=== PATIENT | female | born 1935 | race Caucasian/White ===

== ENCOUNTER → 2016-10-06 | Day surgery (SDC) | payer MEDICARE, OTHER ==
[~2016-10-06] MED LIST: AMIT25TA PO; ASPI325T4 PO; CARV12.52 PO; CARV25TA2 PO; CYCL5TAB PO; FENTANYL PF 100 MCG/2 ML VIAL. IV PRN; GABA-585 PO; GUAN2TAB11 PO; HYDR-2869 PO; HYDR50TA6 PO; HYDROMORPHONE 2 MG/ML VIAL. IV PRN; INSU100I13 SQ; IV RINGERS,LACTATED 1000ML 1,000 ML IV SCH; LIDOCAINE 1% 1 ML SYRINGE. ID PRN; LIDOCAINE 2% PF Vial for OR 5 ML VIAL. ONE; LIPA1CAP12 PO; MECL12.52 PO; METO10TA81 PO; MORPHINE SULFATE 2 MG/ML DISP.SYRIN. IV PRN; NALO25TA2 PO; NIFE60TA16 PO; OMEP40CA5 PO; ONDANSETRON PF 4 MG/2 ML VIAL. IV PRN; OXYC-244 PO; PHEN100C PO; PROCHLORPERAZINE 10 MG/2 ML VIAL. IV PRN; PROPOFOL 0 ML IV ONE; PROPOFOL 20 ML IV ONE; SCOP1PAT TP; SERT100T PO; SPIR50TA2 PO; SUCR1TAB29 PO
[2016-10-06 09:54] VITALS: BP 181/78
== END | disposition home or self-care (01) ==
LOC: ENDOS 07:47
PROVIDERS: ATTEND Internal Medicine Gastroenterology
DX: D50.9 Iron deficiency anemia, unspecified (principal); K64.0 First degree hemorrhoids; K29.50 Unspecified chronic gastritis without bleeding; I10 Essential (primary) hypertension; J45.909 Unspecified asthma, uncomplicated; E11.9 Type 2 diabetes mellitus without complications; F32.9 Major depressive disorder, single episode, unspecified; Z98.0 Intestinal bypass and anastomosis status; Z86.73 Personal history of transient ischemic attack (TIA), and cerebral infarction without residual deficits; Z90.710 Acquired absence of both cervix and uterus
CPT/HCPCS: 43235; 45378; 82947; J2704

== ENCOUNTER → 2017-04-12 | Outpatient (CLI) | payer MEDICARE, OTHER ==
[~2017-04-12] MED LIST changes: +AMLO5TAB2 PO; -ASPI325T4 PO; +ASPI325T8 PO; +BUPR150T11 PO; +CLON1PAT9 TD; -FENTANYL PF 100 MCG/2 ML VIAL. IV PRN; +FERR-26 PO; +GABA100C6 PO; -HYDROMORPHONE 2 MG/ML VIAL. IV PRN; +INSU300I SUBCUT; +IRON SUCROSE COMPLEX 500 MG in IV NORMAL SALINE 250ML 250 ML IV ONE; -IV RINGERS,LACTATED 1000ML 1,000 ML IV SCH; -LIDOCAINE 1% 1 ML SYRINGE. ID PRN; -LIDOCAINE 2% PF Vial for OR 5 ML VIAL. ONE; -MORPHINE SULFATE 2 MG/ML DISP.SYRIN. IV PRN; -ONDANSETRON PF 4 MG/2 ML VIAL. IV PRN; -OXYC-244 PO; +OXYC-327 PO; +PHEN100C4 PO; -PROCHLORPERAZINE 10 MG/2 ML VIAL. IV PRN; -PROPOFOL 0 ML IV ONE; -PROPOFOL 20 ML IV ONE; +SERT100T8 PO; -SUCR1TAB29 PO; +SUCR1TAB35 PO
[2017-04-12 08:55] VITALS: BP 173/74
== END ==
LOC: OPS 08:33
PROVIDERS: ATTEND Family Medicine
DX: D50.9 Iron deficiency anemia, unspecified (principal); G40.909 Epilepsy, unspecified, not intractable, without status epilepticus; E78.00 Pure hypercholesterolemia, unspecified; I10 Essential (primary) hypertension; J45.909 Unspecified asthma, uncomplicated; G47.30 Sleep apnea, unspecified; K21.9 Gastro-esophageal reflux disease without esophagitis; M06.9 Rheumatoid arthritis, unspecified; E11.9 Type 2 diabetes mellitus without complications; F32.9 Major depressive disorder, single episode, unspecified
CPT/HCPCS: 96365; 96366; J1756; J7050; J7030

== ENCOUNTER → 2018-07-04 | Outpatient (CLI) | payer OTHER ==
[2018-05-25 11:40] VITALS: BP 127/66
[~2018-07-04] MED LIST changes: -AMLO5TAB2 PO; +AMLO5TAB7 PO; +ASPI1TAB31 PO; +BREO ELLIPTA 11 EACH IH; +CARV12.511 PO; -CARV12.52 PO; +DULO30CA2 PO; -FERR-26 PO; +FERR325T14 PO; +GABA300C18 PO; +HYDR-2765 PO; -IRON SUCROSE COMPLEX 500 MG in IV NORMAL SALINE 250ML 250 ML IV ONE; +MAGN2400 PO; +MECL25TA3 PO; +MELA3TAB2 PO; +NORT10CA PO; -OXYC-327 PO; +OXYC1TAB19 PO; -SCOP1PAT TP; +SCOP1PAT11 TP; -SPIR50TA2 PO; +SPIR50TA4 PO
--- NOTE | 2018-07-04 18:17 | CARD ---
MR#: [id number] Date of Study: 07/04/2018 Ordering Physician: ANTONIO MALONEY, Referring Physician: ANTONIO MALONEY, Tech: Stephy Farfan APPROVED REPORT EXAM: Two-dimensional and M-mode echocardiogram with Doppler and color Doppler. Other Information Quality : AverageHR: 68bpm INDICATION Arrhythmia RISK FACTORS Hypertension Hyperlipidemia Diabetes 2D DIMENSIONS RVDd3.7 (2.9-3.5cm)Left Atrium(2D)3.6 (1.6-4.0cm) IVSd1.0 (0.7-1.1cm)Aortic Root(2D)3.1 (2.0-3.7cm) LVDd4.9 (3.9-5.9cm)LVOT Diameter2.2 (1.8-2.4cm) PWd1.1 (0.7-1.1cm) Aortic Valve AoV Peak Ferdinand.158.5cm/sAoV VTI31.2cm AO Peak GR.10.0mmHgLVOT Peak Ferdinand.102.9cm/s LVOT VTI 24.12cmAO Mean GR.5mmHg AI P 1/2 [id number] Mitral Valve MV E Oywlhwqx467.7cm/sMV DECEL [id number] MV A Oyoueyuy22.3cm/sMV WGB19sk E/A Ratio1.1MVA (PHT)3.92cm2 TDI E/Lateral E'12.7E/Medial E'14.0 Pulmonary Valve PV Peak Rfhvgjzt916.2cm/sPV Peak Grad.7mmHg Tricuspid Valve TR P. Ilqfrreq068gi/sTR Peak Gr.31mmHg Pulmonary Vein S1 Bockjbrj42.1cm/sD2 Tpaunrza32.5cm/s PVa wihqgczn60bnze LEFT VENTRICLE The left ventricle is normal size. There is borderline concentric left ventricular hypertrophy. The l eft ventricular systolic function is normal and the ejection fraction is within normal range. The Eje ction Fraction is 50-55%. There is normal LV segmental wall motion. Transmitral Doppler flow pattern is Grade II-pseudonormal filling dynamics. RIGHT VENTRICLE The right ventricle is normal size. There is normal right ventricular wall thickness. The right ventr icular systolic function is normal. There is a device lead in the right ventricle. ATRIA The left atrium size is normal. The right atrium size is normal. The interatrial septum is intact wit h no evidence for an atrial septal defect or patent foramen ovale as noted on 2-D or Doppler imaging. AORTIC VALVE The aortic valve is normal in structure and function. Doppler and Color Flow revealed trace aortic re gurgitation. There is no significant aortic valvular stenosis. Calculated aortic valve area is 1.7 cm 2 with maximum pressure gradient of 10 mmHg and mean pressure gradient of 5 mmHg. MITRAL VALVE The mitral valve is normal in structure and function. There is no evidence of mitral valve prolapse. There is no mitral valve stenosis. Doppler and Color-flow revealed trace mitral regurgitation. TRICUSPID VALVE The tricuspid valve is normal in structure and function. Doppler and Color Flow revealed mild tricusp id regurgitation. There is no tricuspid valve stenosis. PULMONIC VALVE The pulmonic valve is not well visualized. Doppler and Color Flow revealed trace pulmonic valvular re gurgitation. GREAT VESSELS The aortic root is normal in size. The IVC is normal in size and collapses >50% with inspiration. PERICARDIAL EFFUSION There is no evidence of significant pericardial effusion. Critical Notification Critical Value: No <Conclusion> The left ventricle is normal size. The left ventricular systolic function is normal and the ejection fraction is within normal range. The Ejection Fraction is 50-55%. There is borderline concentric left ventricular hypertrophy. There is a device lead in the right ventricle. There is no significant aortic valvular stenosis. Calculated aortic valve area is 1.7 cm2 with maximum pressure gradient of 10 mmHg and mean pressure g radient of 5 mmHg. Doppler and Color Flow revealed trace aortic regurgitation. Doppler and Color-flow revealed trace mitral regurgitation. Doppler and Color Flow revealed mild tricuspid regurgitation. Signed by : Ray Wayne MD Electronically Approved : 07/04/2018 18:16:01
== END | disposition home or self-care (01) ==
LOC: ECHO 10:56
PROVIDERS: ATTEND Internal Medicine Cardiovascular Disease
DX: I36.1 Nonrheumatic tricuspid (valve) insufficiency (principal); E11.9 Type 2 diabetes mellitus without complications; E78.5 Hyperlipidemia, unspecified; I11.9 Hypertensive heart disease without heart failure
CPT/HCPCS: 93306

== ENCOUNTER 2018-08-06 06:14 | Outpatient (CLI) | payer OTHER ==
[~2018-08-06] VITALS: Ht 160 cm; Wt 75.7 kg
[2018-08-06] VITALS (9 sets, daily range): BP systolic 110–160; BP diastolic 39–79
[2018-08-06 06:54] LABS: HEMATOCRIT 29.4 % (36.0-47.0); HEMOGLOBIN 8.9 g/dL (12.0-15.5); RED BLOOD COUNT 3.7 x10^6/uL (3.50-5.40); RED CELL DISTRIBUTION WIDTH 17.5 % (11.5-14.5); WHITE BLOOD COUNT 6.5 x10^3/uL (4.0-11.0)
[2018-08-06 07:03] LABS: CALCIUM 9.1 mg/dL (8.5-10.1); CREATININE 0.7 mg/dL (0.6-1.0); GFR 80.5; POTASSIUM 3.9 mmol/L (3.5-5.1)
[2018-08-06] MEDS ORDERED: INSU100I30 SQ (07:05)
[2018-08-06] MEDS ORDERED: IOHEXOL 300 MG/ML 100ML VIAL. ONE (07:08)
[2018-08-06] MEDS ORDERED: LIDOCAINE 1% PF 2 ML VIAL. ONE (07:09)
[2018-08-06] MEDS ORDERED: NITROGLYCERIN 200 MCG/2 ML SYRINGE FOR CATH/VASC LAB. ONE (07:17)
[2018-08-06] MEDS ORDERED: HEPARIN for IV BOLUS 10,000 UNIT/10 ML VIAL. ONE (07:17)
[2018-08-06] MEDS ORDERED: VERAPAMIL 5 MG/2 ML VIAL. ONE (07:17)
[2018-08-06] MEDS ORDERED: fentaNYL PF VIAL 100 MCG/2 ML VIAL ONE (07:17)
[2018-08-06] MEDS ORDERED: MIDAZOLAM HCL/PF 2 MG/2 ML VIAL. ONE (07:17)
[2018-08-06] MEDS ORDERED: HEPARIN for IV BOLUS 10,000 UNIT/10 ML VIAL. IART ONE (07:30)
[2018-08-06] MEDS ORDERED: MIDAZOLAM HCL/PF 2 MG/2 ML VIAL. IV ONE (07:30)
[2018-08-06] MEDS ORDERED: IOHEXOL 300 MG/ML 100ML VIAL. IART ONE (07:30)
[2018-08-06] MEDS ORDERED: LIDOCAINE 1% PF 2 ML VIAL. INJ ONE (07:30)
[2018-08-06] MEDS ORDERED: fentaNYL PF VIAL 100 MCG/2 ML VIAL IV ONE (07:30)
[2018-08-06] MEDS ORDERED: NITROGLYCERIN 200 MCG/2 ML SYRINGE FOR CATH/VASC LAB. IART ONE (07:30)
[2018-08-06] MEDS ORDERED: VERAPAMIL 5 MG/2 ML VIAL. IART ONE (07:30)
[2018-08-06] MEDS ORDERED: HEPARIN for IV BOLUS 10,000 UNIT/10 ML VIAL. IV ONE (08:45)
[2018-08-06] MEDS ORDERED: ADENOSINE 90 MG/30 ML VIAL. IV ONE (08:54)
[2018-08-06] MEDS ORDERED: ADENOSINE 90 MG in IV NORMAL SALINE 50ML 90 ML IV ONE (09:15)
--- NOTE | 2018-08-06 10:34 | CARD ---
MR#: [id number] Date of Study: 08/06/2018 Ordering Physician: ANTONIO OBRIEN, Referring Physician: ANTONIO OBRIEN Tech: RT Diamond (R) VAN APPROVED REPORT Technologist: RT Diamond (R) VAN Nurse: JUAN LUIS BANERJEE Procedure(s) performed: 1. Left heart catheterization, selective coronary angiography via left transr adial approach 2. Instant wave free ratio (IFR) and Fractional flow reserve (FFR) measurement to left anterior desce nding artery stenosis Moderate sedation 65 minutes INDICATION The indication(s) include : unstable angina . PROCEDURE NARRATIVE After explaining the risks, benefits and alternative options, informed consent was obtained from jimmy ent. Patient was brought to the cardiac Surgical Instrument Maker and left wrist was prepped and draped in the usual fashion after confirming a positive modified Karl's test. Arterial access was obtained in the left radial artery and a 6 Macedonian sheath was inserted. 6 Macedonian JL 4 and 6 Macedonian JR4 catheters were used to perform selective angiography of the left and right coronary arteries. LVEDP and transaortic gradi ents were measured. Since patient was found to have angiographically borderline significant stenosis involving the left anterior descending artery, a decision was made to assess his physiologic signific ance using Instant wave free ratio (IFR) measurement. The stenosis was crossed with [place] PressureWire and IFR measurement was made that was borderline significant at 0.89. We decided to eval uate this further using fractional flow reserve (FFR) measurement. Patient was administered intraveno us adenosine per protocol and FFR measurement was made which was not significant at 0.87. Hence no in terventions were performed on this stenosis. Patient tolerated the procedure well. Hemostasis was ac hieved using TR band. There were no immediate complications. The following findings were noted. FINDINGS 1. Hemodynamics: Left ventricular end-diastolic pressure of 15 mmHg. No pullback gradient across th e aortic valve. 2. Coronary angiography: a. The left main coronary artery arose from the left sinus of Valsalva, gave rise to the left anteri or descending and left circumflex arteries and showed 20% stenosis involving the ostial segment. b. The left anterior descending artery showed 50% stenosis involving the midsegment there was physio logically not significant based on FFR measurement of 0.87. c. The left circumflex artery did not show any significant stenosis. d. The right coronary artery was a large and dominant vessel arising from the right sinus of Valsalv a that did not show any significant stenosis. Conclusion Nonobstructive coronary artery disease involving the left anterior descending artery, proved physiolo gically insignificant based on FFR measurement. Recommendations Cardiovascular risk factor modification Signed by : Antonio Obrien, Electronically Approved : 08/06/2018 10:32:21
[2018-08-06] MEDS ORDERED: IV 1/2 NORMAL SALINE 1,000 ML IV SCH (10:35)
--- NOTE | 2018-08-06 10:35 | PDOC ---
MODERATE SEDATION ASSESSMENT RISKS/ALTERNATIVES Risks/Alternatives Risks and alternatives of this type of sedation and procedure discussed with: RISK/ALTERNATIVES: Patient H & P ON CHART H & P H & P on chart and reviewed for co-morbid conditions and appropriate labs. H&P ON CHART: Yes STATUS PREG STATUS ASSESSED: N/A MEDS/ALLERGIES REVIEWED Meds/Allergies Reviewed Medications and Allergies including time and route of recently administered narcotics and sedatives. MEDS/ALLERGIES REVIEWED: Yes ASA RATING ASA RATING: III AIRWAY ASSESSMENT Airway Assessment Airway patency, oral function limitations, presence of caps, crowns, dentures, partials, and ability to extend neck assessed. AIRWAY ASSESSMENT: Yes MALLAMPATI SCORE MALLAMPATI SCORE: II PRE-SEDATION ASSESSMENT PRE-SEDATION ASSESSMENT: Yes ANTONIO MALONEY MD Aug 06, 2018 10:35
[2018-08-06] MEDS ORDERED: NITROGLYCERIN SUBLINGUAL 0.4 MG BOTTLE OF 25. SL PRN (10:45)
--- NOTE | 2018-08-06 11:40 | NUR ---
discharge instructions reviewed with patient and family. Pt ambulated and tolerated PO. Pt discharged to home with all belongings
== END 2018-08-06 12:07 | disposition home or self-care (01) ==
LOC: CCL 06:14
PROVIDERS: ATTEND Internal Medicine Cardiovascular Disease
DX: I25.110 Atherosclerotic heart disease of native coronary artery with unstable angina pectoris (principal); R56.9 Unspecified convulsions; I49.5 Sick sinus syndrome; E78.5 Hyperlipidemia, unspecified; I10 Essential (primary) hypertension; J45.909 Unspecified asthma, uncomplicated; E11.9 Type 2 diabetes mellitus without complications; K21.9 Gastro-esophageal reflux disease without esophagitis; I87.2 Venous insufficiency (chronic) (peripheral); D64.9 Anemia, unspecified; Z98.890 Other specified postprocedural states; Z82.49 Family history of ischemic heart disease and other diseases of the circulatory system; Z82.3 Family history of stroke; Z95.0 Presence of cardiac pacemaker; Z86.73 Personal history of transient ischemic attack (TIA), and cerebral infarction without residual deficits; Z88.0 Allergy status to penicillin; Z88.8 Allergy status to other drugs, medicaments and biological substances; Z91.040 Latex allergy status; Z79.899 Other long term (current) drug therapy; Z87.891 Personal history of nicotine dependence; Z79.82 Long term (current) use of aspirin
CPT/HCPCS: 36415; 80048; 85027; 85610; 93458; 93571; C1769; C1892; J0153; J1644; J2250; J3010; J3490; Q9967; 99152; 99153

== ENCOUNTER 2018-09-03 07:45 | Outpatient (CLI) | payer OTHER ==
[~2018-09-03 07:45] MED LIST changes: +AMLO5TAB10 PO; -AMLO5TAB7 PO; +INSU100I30 SQ
[2018-09-03] MEDS ORDERED: LIDOCAINE WITH 8.4% SOD BICARB 3 ML DISP.SYRIN. INJ ONE (08:00)
[2018-09-03] MEDS ORDERED: IOHEXOL 300 MG/ML 50 ML VIAL. IJ ONE (08:00)
[2018-09-03 09:54] VITALS: BP 153/72
--- NOTE | 2018-09-03 10:33 | RAD ---
Cervical myelogram, 09/03/2018: History: Cervical stenosis, pain Under local anesthesia, aseptic conditions and fluoroscopic guidance a lumbar puncture was performed at the mid L2 level utilizing a 25-gauge Boni spinal needle. Good clear CSF flow was obtained following which 11 cc of Omnipaque 300 was injected into the thecal sac. The spinal needle was then removed and hemostasis obtained. The contrast material was maneuvered into the cervical region and appropriate digital imaging performed. 2.6 minutes of fluoroscopy time was utilized. 11 fluoroscopic spot images were recorded. The patient tolerated the procedure well and was sent to CT in good condition. The following findings are delineated on the myelogram: 1. In the supine position with neck extended there are mild anterior and posterior extradural defects at all levels from C2-3 down through C5-6. There is mild associated central spinal stenosis at these levels. 2. There is a small left lateral extradural defect at C5-6. CT of the cervical spine post myelogram, 09/03/2018: Multidetector CT imaging was performed with multiplanar reconstructions produced. The following findings are delineated: 1. No fracture, subluxation or destructive bony lesion is seen. There are mild degenerative changes involving scattered facet joints bilaterally. 2. At C2-3 there is mild posterior annular bulging. The thecal sac measures 9-10 mm in AP diameter at the midline. The neural foramina are well maintained. 3. At C3-4 there is mild broad-based posterior disc bulging. The thecal sac measures 9 mm in AP diameter at the midline. The neural foramina are well maintained. 4. At C4-5 there is moderate posterior disc bulging at the midline. The thecal sac measures 9 mm in AP diameter at the midline. The neural foramina are well maintained. 5. At C5-6 there is moderate disc space narrowing with anterior and posterior marginal spurring there is moderate broad-based posterior disc bulging. The thecal sac measures 8 mm in AP diameter at the midline. The spurring is causing mild left foraminal narrowing. 6. At C6-7 there is mild posterior disc bulging at the midline. There is mild posterior ligamentous thickening and calcification. The thecal sac measures 8-9 mm in AP diameter at the midline. The neural foramina are well maintained. 7. At C7-T1 there is minimal posterior disc bulging and spurring. The thecal sac measures 9-10 mm in AP diameter at the midline. The neural foramina are well maintained. IMPRESSION: 1. Moderate multilevel degenerative change, which is most severe at the C5-6 level, where there is mild associated central spinal stenosis and mild left foraminal encroachment. 2. There is borderline central spinal stenosis at several other levels as described above. PQRS Compliance Statement: One or more of the following individualized dose reduction techniques were utilized for this examination: 1. Automated exposure control 2. Adjustment of the mA and/or kV according to patient size 3. Use of iterative reconstruction technique
--- NOTE | 2018-09-03 10:48 | NUR ---
Discharge Note: LARRY JUNG Discharge instructions and discharge home medications reviewed with Patient and a copy given. All questions have been answered and understanding verbalized. The following instructions and handouts were given: education was given regarding myelogram and d/c instructions. Discontinued lines and drains: no iv was present at the time of admission or discharge. Pt was able to ambulate with no problems to the bathroom with cane prior to d/c. Patient discharged to home with self care via ambulation. Pt accompanied by daughter.
== END 2018-09-03 10:50 | disposition home or self-care (01) ==
LOC: RAD 07:45
PROVIDERS: ATTEND Neurological Surgery
DX: M47.892 Other spondylosis, cervical region (principal); M48.02 Spinal stenosis, cervical region; M46.03 Spinal enthesopathy, cervicothoracic region; M50.823 Other cervical disc disorders at C6-C7 level
CPT/HCPCS: 72126; 72240; Q9967

== ENCOUNTER 2018-10-17 10:23 | Inpatient (IN) | payer OTHER ==
[~2018-10-17] VITALS: Ht 162.6 cm; Wt 78.9 kg
[2018-10-17] MEDS ORDERED: DEXTROSE 50% 25 GM / 50ML DISP.SYRIN. IV PRN (14:00)
[2018-10-17] MEDS ORDERED: ONDANSETRON ODT 4 MG TAB.RAPDIS. PO PRN (14:00)
[2018-10-17] MEDS ORDERED: LIDOCAINE WITH 8.4% SOD BICARB 3 ML DISP.SYRIN. ONE (14:09)
[2018-10-17] MEDS ORDERED: LIDOCAINE WITH 8.4% SOD BICARB 3 ML DISP.SYRIN. INJ ONE (14:30)
[2018-10-17 15:00] VITALS: BP 109/61
[2018-10-17] MEDS: GABAPENTIN 300 MG CAPSULE. PO SCH ×2 (15:57→20:44)
[2018-10-17] MEDS: LIPASE/PROTEAS/AMYLAS 10/32/42 CAPSULE.DR. PO SCH ×2 (15:57→20:44)
[2018-10-17] MEDS: metroNIDAZOLE 500 MG TABLET PO SCH ×2 (15:58→20:43)
[2018-10-17] MEDS: SUCRALFATE 1 GM TABLET. PO SCH ×2 (15:58→20:44)
[2018-10-17 16:27] LABS: BASO # 0.1 x10^3/uL (0.0-0.2); BASO % 2 % (0-3); EOS # 0.1 x10^3/uL (0.0-0.7); EOS % 1 % (0-3); HEMATOCRIT 24.8 % (36.0-47.0); HEMOGLOBIN 7.3 g/dL (12.0-15.5); LYMPH # 0.9 x10^3/uL (1.0-4.8); LYMPH % 18 % (24-48); MEAN CORPUSCULAR HEMOGLOBIN 22 pg (25-35); MEAN CORPUSCULAR HGB CONC 29 g/dL (31-37); MEAN CORPUSCULAR VOLUME 75 fL (79-100); MONO # 0.7 x10^3/uL (0.0-1.1); MONO % 13 % (0-9); NEUT # 3.3 x10^3uL (1.8-7.7); NEUT % 66 % (31-73); PLATELET COUNT 184 x10^3/uL (140-400); RED BLOOD COUNT 3.31 x10^6/uL (3.50-5.40); RED CELL DISTRIBUTION WIDTH 19.2 % (11.5-14.5); WHITE BLOOD COUNT 5.1 x10^3/uL (4.0-11.0)
[2018-10-17 16:37] LABS: CALCIUM 8.1 mg/dL (8.5-10.1); CREATININE 0.5 mg/dL (0.6-1.0); GFR 118.4; POTASSIUM 3.3 mmol/L (3.5-5.1)
[2018-10-17] MEDS: INSULIN LISPRO 300 UNITS/3 ML INSULN.PEN. SQ SCH (17:00)
[2018-10-17] MEDS: CARVEDILOL 12.5 MG TABLET. PO SCH (17:35)
[2018-10-17 19:00] VITALS: BP 197/67
[2018-10-17 19:08] LABS: ANISOCYTOSIS SLIGHT; HYPOCHROMIA MOD; MICROCYTOSIS SLIGHT; OVALOCYTES FEW; PLT ESTIMATE ADEQUATE (ADEQUATE); POLYCHROMASIA SLIGHT
[2018-10-17] MEDS: PHENYTOIN SODIUM EXTENDED 100 MG CAPSULE PO SCH (20:44)
[2018-10-17] MEDS: LACTOBACILLUS RHAMNOSUS GG 1 CAPSULE. PO SCH (20:44)
[2018-10-17] MEDS: HYDROcodone/APAP 7.5/325MG 1 TAB TABLET PO PRN (21:54)
[2018-10-17 23:00] VITALS: BP 148/47
[2018-10-18 03:00] VITALS: BP 182/59
[2018-10-18] MEDS: metroNIDAZOLE 500 MG TABLET PO SCH ×3 (06:01→21:46)
[2018-10-18 07:00] VITALS: BP 145/80
[2018-10-18] MEDS: INSULIN LISPRO 300 UNITS/3 ML INSULN.PEN. SQ SCH ×3 (08:00→17:19)
[2018-10-18] MEDS ORDERED: cloNIDine TTS-1 1 PATCH PATCH.TDWK TD SCH (09:00)
--- NOTE | 2018-10-18 09:17 | NUR ---
IP:Pt admitted with dx of possible infectious colitis thus pt to be in contact plus precautions until verified.
[2018-10-18] MEDS: SUCRALFATE 1 GM TABLET. PO SCH ×4 (09:24→20:42)
[2018-10-18] MEDS: CARVEDILOL 12.5 MG TABLET. PO SCH ×2 (09:25→17:21)
[2018-10-18] MEDS: PANTOPRAZOLE 40 MG TABLET.DR. PO SCH (09:25)
[2018-10-18] MEDS: PHENYTOIN SODIUM EXTENDED 100 MG CAPSULE PO SCH ×2 (09:26→20:38)
[2018-10-18] MEDS: LACTOBACILLUS RHAMNOSUS GG 1 CAPSULE. PO SCH ×2 (09:27→20:42)
[2018-10-18] MEDS: DULoxetine HCL 30 MG CAPSULE.DR PO SCH (09:28)
[2018-10-18] MEDS: GABAPENTIN 300 MG CAPSULE. PO SCH ×3 (09:28→20:42)
--- NOTE | 2018-10-18 09:28 | PDOC2 ---
GI CONSULT Reason For Consult: Anemia, abd pain, recent blood per rectum, abnormal CT HPI: HPI: 83 y/o female transferred from [facility]. Tells me ill since Sunday w/ "bleeding" - unclear if occurred with or without stool, says "red and black." Then developed left-sided abd pain which apparently worsened the next day - says she "screamed" on the phone with her daughter. She was evaluated in the [facility] ER and admitted there on 10/14. H&P indicates that CT showed moderate wall thickening of the sigmoid colon w/o surrounding inflammation. Currently on clears w/ PO atbx. Had a PICC placed yesterday. She says pain is ongoing, cramping and constant, sometimes worse w/ eating. She is unaware of last episode of bleeding because she doesn't look at her stools. Thinks she had a soft stool this morning. EGD and colonoscopy w/ Dr. Hawk in 09/2016 for HEIDI: normal esophagus, patent Billroth II gastrojejunostomy, chronic gastritis (no biopsy), non-bleeding internal hemorrhoids, and patent end-to-end colo-colonic anastomosis. S/p cholecystectomy. She says she's not sure about any past liver or pancreas issues. H/o bowel obstructions and abd surgeries as below. Takes ASA, Prilosec , pancreatic enzymes, Linzess per home med list. Doesn't like PO iron because it gives her black eyes. RN tells me received report of diarrhea at home but not showing stools to staff here. No knowledge of bleeding. PMH: PMH: per records - CAD, [place], CVA, DM, HTN, HLD, asthma, MARQUITA, DVT/PE, RA, DJD, GERD, HEIDI, bowel obstructions, depression Billroth II, cholecystectomy, , hysterectomy, pacemaker, right knee surgery, back surgery, cardiac cath, ventral hernia repair w/ mesh, JULI, colon resections, endarterectomy FH: Family History: DM Social History: Smoke: No ALCOHOL: none Drugs: None ROS: GEN: Denies fevers, chills, sweats HEENT: Denies blurred vision, sore throat CV: Denies chest pain RESP: Denies shortness of air, cough GI: Per HPI : Denies hematuria, dysuria ENDO: Denies weight changes NEURO: Denies confusion, dizziness MSK: +weakness SKIN: Denies jaundice, pruritus Vitals: Vitals: Vital Signs Date Time Temp Pulse Resp B/P (MAP) Pulse Ox O2 Delivery O2 Flow Rate FiO2 10/18/18 07:00 97.4 64 18 145/80 (101) 99 Room Air 97.4 10/17/18 22:56 2.0 Labs: Labs: Laboratory Tests Test 10/17/18 12:33 10/17/18 16:14 10/17/18 16:50 10/17/18 20:41 Glucose (Fingerstick) 117 mg/dL (70-99) 108 mg/dL (70-99) 111 mg/dL (70-99) White Blood Count 5.1 x10^3/uL (4.0-11.0) Red Blood Count 3.31 x10^6/uL (3.50-5.40) Hemoglobin 7.3 g/dL (12.0-15.5) Hematocrit 24.8 % (36.0-47.0) Mean Corpuscular Volume 75 fL (79-100) Mean Corpuscular Hemoglobin 22 pg (25-35) Mean Corpuscular Hemoglobin Concent 29 g/dL (31-37) Red Cell Distribution Width 19.2 % (11.5-14.5) Platelet Count 184 x10^3/uL (140-400) Neutrophils (%) (Auto) 66 % (31-73) Lymphocytes (%) (Auto) 18 % (24-48) Monocytes (%) (Auto) 13 % (0-9) Eosinophils (%) (Auto) 1 % (0-3) Basophils (%) (Auto) 2 % (0-3) Neutrophils # (Auto) 3.3 x10^3uL (1.8-7.7) Lymphocytes # (Auto) 0.9 x10^3/uL (1.0-4.8) Monocytes # (Auto) 0.7 x10^3/uL (0.0-1.1) Eosinophils # (Auto) 0.1 x10^3/uL (0.0-0.7) Basophils # (Auto) 0.1 x10^3/uL (0.0-0.2) Platelet Estimate Adequate (ADEQUATE) Polychromasia Slight Hypochromasia Mod Anisocytosis Slight Microcytosis Slight Ovalocytes Few Sodium Level 141 mmol/L (136-145) Potassium Level 3.3 mmol/L (3.5-5.1) Chloride Level 104 mmol/L (98-107) Carbon Dioxide Level 30 mmol/L (21-32) Anion Gap 7 (6-14) Blood Urea Nitrogen 7 mg/dL (7-20) Creatinine 0.5 mg/dL (0.6-1.0) Estimated GFR (Cockcroft-Gault) 118.4 Glucose Level 122 mg/dL (70-99) Calcium Level 8.1 mg/dL (8.5-10.1) Allergies: Coded Allergies: fosphenytoin (Verified Allergy, Severe, Hives, 07/13/18) Allergy to IV form. Pt can tolerate PO extended release dilantin [place] Penicillins (Verified Allergy, Intermediate, 04/12/17) latex (Verified Allergy, Intermediate, 04/12/17) Medications: Current Medications Medications (Trade) Dose Ordered Sig/Xi Route PRN Reason Start Time Stop Time Status Last Admin Dose Admin Carvedilol (Coreg) 12.5 mg BIDWMEALS PO 10/17/18 17:00 10/17/18 17:35 Acetaminophen/ Hydrocodone Bitart (Lortab 7.5/325) 1 tab PRN Q6HRS PRN PO PAIN 10/17/18 13:45 10/17/18 21:54 Amylase/Lipase/ Protease (Zenpep 10,000) 1 cap TID PO 10/17/18 14:00 10/17/18 20:44 Phenytoin Sodium (Dilantin) 300 mg QHS PO 10/17/18 21:00 10/17/18 20:44 Gabapentin (Neurontin) 300 mg TID PO 10/17/18 14:00 10/17/18 20:44 Lactobacillus Rhamnosus (Culturelle) 1 cap BID PO 10/17/18 21:00 10/17/18 20:44 Lidocaine/Sodium Bicarbonate (Buffered Lidocaine 1%) 6 ml 1X ONCE INJ 10/17/18 14:30 10/17/18 14:35 DC 10/17/18 14:44 Sucralfate (Carafate) 1 gm QIDACHS PO 10/17/18 16:30 10/17/18 20:44 Hydralazine HCl (Apresoline) 50 mg TID PO 10/17/18 15:15 10/17/18 20:44 Levofloxacin (Levaquin) 250 mg HS PO 10/17/18 21:00 10/17/18 20:44 Metronidazole (Flagyl) 500 mg Q8HRS PO 10/17/18 15:15 10/18/18 06:01 Imaging: Imaging: Per HPI. PE: GEN: NAD HEENT: Atraumatic, PERRL LUNGS: CTAB HEART: RRR ABD: NABS, S/ND, tender from epigastrium to LUQ tracking down to LLQ EXTREMITY: No edema SKIN: No rashes, no jaundice NEURO/PSYCH: A & O 3 A/P: A/P: Left-sided abd pain, ?hematochezia/melena HEIDI, +fecal occult Abnormal CT - moderate wall thickening of the sigmoid colon GERD on PPI, also Carafate here S/p Billroth II and colo-colonic anastomosis CRC screen - UTD (2016) H/o constipation - home med list shows Linzess Hemorrhoids S/p cholecystectomy CAD on ASA -- Continue w/ antibiotics, check stool studies. Agree w/ PPI and Carafate. Monitor for bleeding - seems this has resolved. She doesn't like taking PO iron - consider iron infusions (which can also be done as outpt). 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 ADAT. STACEY RYAN Oct 18, 2018 09:28
[2018-10-18] MEDS: LIPASE/PROTEAS/AMYLAS 10/32/42 CAPSULE.DR. PO SCH ×3 (09:33→20:47)
[2018-10-18 11:00] VITALS: BP 146/37
--- NOTE | 2018-10-18 11:37 | HP ---
ADMIT DATE: 10/17/2018 HISTORY OF PRESENT ILLNESS: The patient is an 83-year-old female patient, who came to the Emergency Room complaining of generalized abdominal pain. She has a long history of small-bowel obstruction, adhesion that normally resolves with IV fluid and bowel rest. She does have history of diabetes, chronic anemia, hypertension, TIA. She was extensively evaluated in the Emergency Room and was admitted with microcytic hypochromic anemia with a hemoglobin of 7.8. Her CT scan of the abdomen and pelvis showed that her liver, spleen, pancreas, adrenal glands and kidneys are unremarkable. There is no mass or lymphadenopathy. There is no free air or free fluid. CT scan of the pelvis with contrast showed that the urinary bladder appears normal. There is no free fluid or lymphadenopathy. There is moderate wall thickening of the sigmoid colon without surrounding inflammation. She was admitted with acute colitis. She was treated with IV Levaquin and Flagyl. Her H and H has apparently dropped down to 6.9 and 24.2, and she did receive 1 unit of packed RBCs, and her H and H has drifted down again. She continued to complain of pain, abdominal pain is diffuse, despite extensive investigation showing that she has normal lactic acid, LDH and lipase. CT scan showed no evidence of obstruction or bowel ischemia. She did have severe iron deficiency anemia with serum iron of 16, TIBC of 288, iron saturation was 6 and serum ferritin was 11, and therefore, the patient was transferred to [facility] to be evaluated by the warp coiler. PAST MEDICAL HISTORY: Significant for paresthesia and hernia repair with Toupet fundoplication. She also had multiple high grade small-bowel obstruction, for which she underwent exploratory laparotomy. 2 colon resection. She has ventral hernia repair with mesh. She is known to have type 2 diabetes, seizure disorder, history of bronchial asthma, rheumatoid arthritis, history of stroke, coronary artery disease, status post myocardial infarction. She apparently has had cardiac catheterization in 2006, hypercholesterolemia, DVT and pulmonary emboli, sleep apnea, esophageal stricture requiring dilatation, history of pancreatitis, kidney stone, incontinence, degenerative joint disease, depression and history of MRSA infection. PAST SURGICAL HISTORY: Significant for a paraesophageal hernia repair with fundoplication. She has endarterectomy, hysterectomy, cholecystectomy, ventral hernia repair with mesh. 2 colon resections with high-grade small-bowel obstruction. She had colonoscopy and upper GI endoscopy before. She apparently has also bariatric surgery for morbid obesity. ALLERGIES: SHE IS ALLERGIC TO PENICILLIN, LATEX AND DILANTIN. FAMILY HISTORY: Both parents passed with diabetes. SOCIAL HISTORY: The patient lives at home with good family support. She does not smoke, drink alcohol or use recreational drugs. MEDICATIONS: She is currently on following medications: She is on Flexeril 5 mg twice a day, clonidine TTS 2 patch once a week, hydralazine 50 mg 3 times a day, carvedilol 12.5 mg twice a day, aspirin 325 mg once a day, oxycodone/APAP 7.5/325 one tablet every 6 hours as needed. She is on phenytoin sodium 300 mg twice a day. Gabapentin 300 mg 3 times a day, duloxetine 30 mg once a day, hydrochlorothiazide 50 mg once a day, docusate sodium 100 mg twice a day, magnesium hydroxide for milk of magnesia 30 mL p.o. daily for constipation, ondansetron 4 mg every 4 hours, sucralfate 1 gram 4 times a day, omeprazole 40 mg once a day, linaclotide 145 mcg once a day. She is also on Tresiba FlexPen 45 units subcutaneously twice a day. PHYSICAL EXAMINATION: GENERAL: On arrival to [facility], she looked pale, but no jaundice, cyanosis, or thyromegaly. No jugular venous distension. No lower limb edema. VITAL SIGNS: Her heart rate was 68, blood pressure 109/61, temperature was 98.3, respiratory rate was 17 and oxygen saturation was 99% on room air. HEAD, EYES, EARS, NOSE AND THROAT: Showed normocephalic, atraumatic. NECK: Supple. HEART: Showed normal first and second heart sounds with no gallop, rub or murmur. CHEST: Clear to auscultation. No crepitation or rhonchi. ABDOMEN: Distended, soft, nontender. No guarding or rigidity. No organomegaly. All hernial orifice intact. Bowel sounds normal. NEUROLOGIC: She is awake, alert, responding appropriately. All cranial nerves intact. EXTREMITIES: She moves extremities without difficulty. LABORATORY DATA: She did have lab work done, showed a white cell count 5100, hemoglobin 7.3, hematocrit 24.8, MCV 75 and platelet count of 184,000. Her chemistry showed a serum sodium 141, potassium 3.3, chloride 104, bicarbonate 30, anion gap of 7, BUN 7, creatinine 0.5, estimated GFR was 118 mL per minute. Her calcium was 8.1. PLAN: My plan is to continue with all her current medication and continue with oral levofloxacin as well as Flagyl and consult the Gastroenterology. SHERRELL NIEVES MD DR: NICHOLAS/mirna JOB#: [id number] / [id number]
--- NOTE | 2018-10-18 12:53 | RAD ---
Exam: Fluoroscopic and ultrasound guided right percutaneous inserted central venous catheter placement 10/18/2018 12:49 PM .Indication: poor peripheral ascess,needs iv iron and lab draws Technique: Informed oral and written consent were obtained. The right upper extremity was prepped and draped using sterile barrier technique. All elements of maximal sterile barrier technique including the use of a cap, mask, sterile gown, sterile gloves, large sterile sheet, appropriate hand hygiene, and 2% chlorhexidine for cutaneous antisepsis (or acceptable alternative antiseptic per current guidelines) were followed for this procedure.. Real-time ultrasound demonstrated a patent right basilic vein. The right upper extremity was prepped and draped in usual sterile fashion. 1% lidocaine used for local anesthesia. Using real-time ultrasound guidance the access needle percutaneously punctured the selected vein. Reference ultrasound images were saved to the medical record. A guidewire was advanced through the needle to the cavoatrial junction, and a peel-away sheath placed. The catheter was cut to length and inserted through the peel-away sheath such that its tip is at the cavoatrial junction. The wire and sheath were removed, and the catheter secured in place, and a sterile dressing was applied. Catheter was found to flush and aspirate normally. No immediate complications are identified. FLUORO TIME: f 0.5 minutes DOSE AREA PRODUCT: 2 Gycm2 Impression: Ultrasound and fluoroscopically guided placement of a right upper extremity PICC line.
[2018-10-18] MEDS ORDERED: IRON SUCROSE COMPLEX 400 MG in IV NORMAL SALINE 250ML 250 ML IV ONE (13:00)
[2018-10-18] MEDS: HYDROcodone/APAP 7.5/325MG 1 TAB TABLET PO PRN (14:29)
[2018-10-18 15:00] VITALS: BP 168/49
--- NOTE | 2018-10-18 15:34 | NUR ---
SW following pt for anticipated dc needs. Chart reviewed. Pt lives at home. No Discharge recommendations/SW needs noted at this time. Will continue to evaluate.
[2018-10-18 19:00] VITALS: BP 158/61
[2018-10-18 23:00] VITALS: BP 149/57
--- NOTE | 2018-10-18 23:50 | PN ---
DATE: 10/18/2018 SUBJECTIVE: The patient is resting slightly propped up in bed, in no apparent respiratory distress. She is awake, alert. On questioning her, she continued to complain of nausea, diffuse abdominal pain. Denied any vomiting. OBJECTIVE: GENERAL: When I examined her, she looked pale. No jaundice, cyanosis, or thyromegaly. No jugular venous distension. No limb edema. VITAL SIGNS: Heart rate was 63, blood pressure was 145/80, temperature was 97.4, respiratory rate was 18, and oxygen saturation was 99%. HEAD, EYES, EARS, NOSE AND THROAT: Showed normocephalic, atraumatic. NECK: Supple. HEART: Showed normal first and second heart sounds. No gallop, rub or murmur. CHEST: Clear to auscultation. No crepitation or rhonchi. ABDOMEN: Distended, soft, with tenderness mostly in the right upper quadrant. The patient stated that she has tenderness all over diffusely. There is no guarding or rigidity. No organomegaly. All hernial orifices intact. Bowel sounds normal. NEUROLOGIC: She is awake, alert, responding appropriately. All cranial nerves intact. She moves extremities without difficulty. She ambulates without assistance or assistive devices. Her intake and output were incompletely recorded. No lab works were done today. PLAN: She has now a PICC line. Has to replenish her sodium source. I will start her on IV Venofer and obviously await recommendation by the Gastroenterology team, but in meanwhile, continue with all other medication. Repeat her labs again tomorrow. SHERRELL NIEVES MD DR: NICHOLAS/mirna JOB#: [id number] / [id number]
[2018-10-19 03:00] VITALS: BP 128/53
[2018-10-19] MEDS: metroNIDAZOLE 500 MG TABLET PO SCH ×3 (05:55→21:54)
[2018-10-19 06:37] LABS: C-REACTIVE PROTEIN 5.7 mg/L (0-3.3); CALCIUM 8.4 mg/dL (8.5-10.1); CREATININE 0.6 mg/dL (0.6-1.0); GFR 95.9
[2018-10-19 07:00] VITALS: BP 156/60
[2018-10-19] MEDS: INSULIN LISPRO 300 UNITS/3 ML INSULN.PEN. SQ SCH ×3 (08:00→16:57)
[2018-10-19] MEDS: LIPASE/PROTEAS/AMYLAS 10/32/42 CAPSULE.DR. PO SCH ×3 (08:30→20:04)
[2018-10-19] MEDS: PHENYTOIN SODIUM EXTENDED 100 MG CAPSULE PO SCH ×2 (08:30→20:04)
[2018-10-19] MEDS: GABAPENTIN 300 MG CAPSULE. PO SCH ×3 (08:30→20:08)
[2018-10-19] MEDS: DULoxetine HCL 30 MG CAPSULE.DR PO SCH (08:30)
[2018-10-19] MEDS: LACTOBACILLUS RHAMNOSUS GG 1 CAPSULE. PO SCH ×2 (08:30→20:02)
[2018-10-19] MEDS: SUCRALFATE 1 GM TABLET. PO SCH ×4 (08:31→20:04)
[2018-10-19] MEDS: PANTOPRAZOLE 40 MG TABLET.DR. PO SCH (08:31)
[2018-10-19] MEDS: CARVEDILOL 12.5 MG TABLET. PO SCH ×2 (08:31→16:56)
[2018-10-19] MEDS: HYDROcodone/APAP 7.5/325MG 1 TAB TABLET PO PRN ×2 (08:38→14:54)
[2018-10-19 11:00] VITALS: BP 161/67
[2018-10-19] MEDS ORDERED: IRON SUCROSE COMPLEX 500 MG in IV NORMAL SALINE 250ML 250 ML IV ONE (11:00)
[2018-10-19] MEDS: POTASSIUM CL 40MEQ IN 0.9%NACL 1,000 ML IV SCH (11:05)
--- NOTE | 2018-10-19 15:00 | PDOC ---
Subjective: Subjective: No acute events over night. Patient reports her symptoms have improved though she had nausea and mild abdominal pain when she ate her breakfast. She had one bowel movement that was reported to be not watery. She has not had bleeding per rectum. She would like to be discharged home by tomorrow. Objective: Vital Signs: Laboratory Tests Test 10/18/18 17:16 10/18/18 20:30 10/18/18 21:15 10/19/18 06:05 Glucose (Fingerstick) 107 mg/dL 102 mg/dL Nasal Screen MRSA (PCR) Negative Erythrocyte Sedimentation Rate 20 Sodium Level 142 mmol/L Potassium Level 3.0 mmol/L Chloride Level 104 mmol/L Carbon Dioxide Level 30 mmol/L Anion Gap 8 Blood Urea Nitrogen 1 mg/dL Creatinine 0.6 mg/dL Estimated GFR (Cockcroft-Gault) 95.9 Glucose Level 116 mg/dL Calcium Level 8.4 mg/dL C-Reactive Protein, Quantitative 5.7 mg/L Test 10/19/18 07:27 10/19/18 10:54 Glucose (Fingerstick) 100 mg/dL 115 mg/dL Current Medications Medications (Trade) Dose Ordered Sig/Xi Route PRN Reason Start Time Stop Time Status Last Admin Dose Admin Carvedilol (Coreg) 12.5 mg BIDWMEALS PO 10/17/18 17:00 10/19/18 08:31 Clonidine HCl (Catapres Tts-1) 1 patch WEEKLY TD 10/18/18 09:00 10/18/18 09:29 Duloxetine HCl (Cymbalta) 30 mg DAILY PO 10/18/18 09:00 10/19/18 08:30 Acetaminophen/ Hydrocodone Bitart (Lortab 7.5/325) 1 tab PRN Q6HRS PRN PO PAIN 10/17/18 13:45 10/19/18 08:38 Amylase/Lipase/ Protease (Zenpep 10,000) 1 cap TID PO 10/17/18 14:00 10/19/18 14:08 Phenytoin Sodium (Dilantin) 200 mg DAILYWBKFT PO 10/18/18 08:00 10/19/18 08:30 Phenytoin Sodium (Dilantin) 300 mg QHS PO 10/17/18 21:00 10/18/18 20:38 Gabapentin (Neurontin) 300 mg TID PO 10/17/18 14:00 10/19/18 14:08 Insulin Human Lispro (HumaLOG) 0-7 UNITS TIDWMEALS SQ 10/17/18 17:00 Dextrose (Dextrose 50%-Water Syringe) 12.5 gm PRN Q15MIN PRN IV SEE COMMENTS 10/17/18 14:00 Lactobacillus Rhamnosus (Culturelle) 1 cap BID PO 10/17/18 21:00 10/19/18 08:30 Ondansetron HCl (Zofran Odt) 4 mg PRN Q6HRS PRN PO NAUSEA/VOMITING 10/17/18 14:00 Pantoprazole Sodium (Protonix) 40 mg DAILYAC PO 10/18/18 07:30 10/19/18 08:31 Lidocaine/Sodium Bicarbonate (Buffered Lidocaine 1%) 3 ml STK-MED ONCE .ROUTE 10/17/18 14:09 10/17/18 14:10 DC Lidocaine/Sodium Bicarbonate (Buffered Lidocaine 1%) 6 ml 1X ONCE INJ 10/17/18 14:30 10/17/18 14:35 DC 10/17/18 14:44 Sucralfate (Carafate) 1 gm QIDACHS PO 10/17/18 16:30 10/19/18 11:04 Hydralazine HCl (Apresoline) 50 mg TID PO 10/17/18 15:15 10/19/18 14:08 Levofloxacin (Levaquin) 250 mg HS PO 10/17/18 21:00 10/18/18 20:43 Metronidazole (Flagyl) 500 mg Q8HRS PO 10/17/18 15:15 10/19/18 14:08 Iron Sucrose 400 mg/Sodium Chloride 270 ml @ 90 mls/hr 1X ONCE IV 10/18/18 13:00 10/18/18 15:59 DC 10/18/18 12:15 Iron Sucrose 500 mg/Sodium Chloride 275 ml @ 78.571 mls/ hr 1X ONCE IV 10/19/18 11:00 10/19/18 14:29 DC 10/19/18 11:04 Potassium Chloride/Sodium Chloride 1,000 ml @ 75 mls/hr [id number] IV 10/19/18 11:00 10/19/18 11:05 Vital Signs Date Time Temp Pulse Resp B/P (MAP) Pulse Ox O2 Delivery O2 Flow Rate FiO2 10/19/18 14:08 62 161/67 10/19/18 11:00 98.0 18 96 Nasal Cannula 2.0 98.0 Labs: Laboratory Tests Test 10/18/18 17:16 10/18/18 20:30 10/19/18 07:27 10/19/18 10:54 Glucose (Fingerstick) 107 mg/dL (70-99) 102 mg/dL (70-99) 100 mg/dL (70-99) 115 mg/dL (70-99) PE: GEN: NAD HEENT: Atraumatic, PERRLA LUNGS: CTAB HEART: RRR, no murmurs ABD: Has a midline surgical scar from upper to lower abdomen. Has mild direct tenderness with no guarding or rebound tenderness. EXTREMITY: No edema SKIN: No rashes, no jaundice NEURO/PSYCH: A & O 3 A/P: 83 years old female patient with history of multiple comorbidities. She is currently admitted after she presented with left sided abdominal pain and report of bleeding per rectum. Imaging of the abdomen with CT ( iv contrast) notable for moderate wall thickening the sigmoid colon with out surrounding inflammation. Last colonoscopy in 2017 that was reported to be unremarkable. Suspect patient has likely infectious colitis versus ischemic colitis ( less likely). She has been on Levaquin and Flagyl. She has nausea but no fever. She had no bloody bowel movement since her arrival. Labs notable for microcytic anemia and hypokalemia . Recommendations: - Advance diet as tolerated. - PPI BID - Antiemetics: Zofran. - Continue with antibiotics at tis time. - Monitor CBC and transfuse to keep hgb above 7. - Monitor lytes and replace as needed. - Follow up with as out patient. - GI available for any Q's. RENATO BONILLA MD Oct 19, 2018 14:59
[2018-10-19 15:03] VITALS: BP 180/74
[2018-10-19 15:16] LABS: HEMATOCRIT 27.1 % (36.0-47.0); HEMOGLOBIN 7.7 g/dL (12.0-15.5)
[2018-10-19 19:00] VITALS: BP 174/57
--- NOTE | 2018-10-19 20:52 | PN ---
DATE: 10/19/2018 SUBJECTIVE: The patient is resting slightly propped up in bed, in no apparent distress; however, she continued to complain of abdominal pain after she had her breakfast. Denied any nausea or vomiting. Denied any diarrhea or fresh blood per rectum. PHYSICAL EXAMINATION: GENERAL: When I examined her, she was pale, not jaundiced, no cyanosis or thyromegaly. No jugular venous distension. No lower limb edema. VITAL SIGNS: Her heart rate was 63, blood pressure was 156/60, temperature was 98.1, respiratory rate was 19 and oxygen saturation was 98%. HEAD, EYES, EARS, NOSE AND THROAT: Normocephalic, atraumatic. NECK: Supple. HEART: Showed normal first and second sounds. No gallop, rub or murmur. CHEST: Clear to auscultation. No crepitation or rhonchi. ABDOMEN: Distended, soft, nontender. No guarding or rigidity. No organomegaly. All hernial orifices intact. Bowel sounds normal. NEUROLOGIC: She was awake, alert, responding appropriately. All cranial nerves intact. She moves extremities without difficulty. Her intake over the last 24 hours was 550, no output was recorded. LABORATORY DATA: This morning showed a serum sodium of 142, potassium 3, chloride 104, bicarbonate 30, anion gap of 8, BUN 1, creatinine 0.6, estimated GFR was 96 mL per minute. Her glucose was 116, calcium was 8.4 and C-reactive protein was 5.7. Her sed rate was 20 mm per hour. ASSESSMENT AND PLAN: The patient was admitted to [facility] with fresh blood per rectum. She has acute colitis for which she was started on IV Levaquin and Flagyl. She continues to be on levofloxacin as well as metronidazole. She was seen by the looping inspector and she is now on carvedilol. As she is on sucralfate and Protonix, I am wondering whether obviously she has either infectious or ischemic colitis and given that she has pain with intake, I wonder whether there is element of intestinal ischemia and I will discuss with the looping inspector. Meanwhile, we will continue to replenish iron and her potassium is also low. SHERRELL NIEVES MD DR: NICHOLAS/mirna JOB#: [id number] / [id number]
[2018-10-19 23:00] VITALS: BP 132/64
[2018-10-20] MEDS: POTASSIUM CL 40MEQ IN 0.9%NACL 1,000 ML IV SCH (00:54)
[2018-10-20 03:00] VITALS: BP 146/56
[2018-10-20] MEDS: metroNIDAZOLE 500 MG TABLET PO SCH (06:00)
[2018-10-20 06:38] LABS: CALCIUM 8.4 mg/dL (8.5-10.1); CREATININE 0.5 mg/dL (0.6-1.0); GFR 118.4; POTASSIUM 3.4 mmol/L (3.5-5.1)
[2018-10-20 07:00] VITALS: BP 197/77
[2018-10-20] MEDS: INSULIN LISPRO 300 UNITS/3 ML INSULN.PEN. SQ SCH (08:00)
[2018-10-20] MEDS: PANTOPRAZOLE 40 MG TABLET.DR. PO SCH (08:42)
[2018-10-20] MEDS: LIPASE/PROTEAS/AMYLAS 10/32/42 CAPSULE.DR. PO SCH (08:42)
[2018-10-20] MEDS: GABAPENTIN 300 MG CAPSULE. PO SCH (08:42)
[2018-10-20] MEDS: LACTOBACILLUS RHAMNOSUS GG 1 CAPSULE. PO SCH (08:43)
[2018-10-20] MEDS: SUCRALFATE 1 GM TABLET. PO SCH (08:43)
[2018-10-20] MEDS: PHENYTOIN SODIUM EXTENDED 100 MG CAPSULE PO SCH (08:43)
[2018-10-20] MEDS: DULoxetine HCL 30 MG CAPSULE.DR PO SCH (08:43)
[2018-10-20] MEDS: CARVEDILOL 12.5 MG TABLET. PO SCH (08:43)
[2018-10-20 10:30] VITALS: BP 131/48
--- NOTE | 2018-10-20 11:46 | NUR ---
Discharge Note: ELOISE JUNG Discharge instructions and discharge home medications reviewed with Patient and a copy given. All questions have been answered and understanding verbalized. The following instructions and handouts were given: colitis Discontinued lines and drains: PICC Line DL intact. Patient discharged to Home or Self Care with Family Member via Wheelchair
--- NOTE | 2018-10-20 12:10 | DS ---
DATE OF DISCHARGE: 10/20/2018 HOSPITAL COURSE: The patient is an 83-year-old female patient who was transferred from [facility] where she was admitted with generalized abdominal pain and also fresh blood per rectum. She also was found to have microcytic hypochromic anemia. His CT scan of the abdomen and pelvis showed that there is moderate wall thickening of the sigmoid colon without surrounding inflammation. She was admitted and treated for acute colitis, was treated with IV Levaquin and Flagyl. Her H and H has dropped, and she received 1 unit of packed RBCs. She continued to complain of abdominal pain, it is diffuse despite extensive investigation showed that her normal lactic acid, LDH and lipase. CT scan showed no evidence of obstruction or bowel ischemia. She did have severe iron deficiency anemia with serum iron of 16, TIBC of 288 and a saturation of 6, serum ferritin of 11. Therefore, she was transferred to [facility] to be evaluated by the feeder catcher. She continued on antibiotic for infectious colitis. She was seen in consultation by the feeder catcher, and we advanced her diet, and she is tolerating that without any problem. She has no further episodes of diarrhea or fresh blood per rectum. She continued to have occasional nausea, but no vomiting, and she expressed her desire to be discharged home. She is feeling much better. She did receive at least 1 gram of iron in the form of Venofer IV. She does not tolerate iron orally. PHYSICAL EXAMINATION: GENERAL: When I saw her this morning, she was sitting comfortably in bed, in no apparent respiratory distress. She was slightly pale, but no jaundice, cyanosis or thyromegaly. No jugular venous distension. No lower limb edema. VITAL SIGNS: Her heart rate was 71, blood pressure was 197/77, temperature was 98.6, respiratory rate was 16 and oxygen saturation was 99%. HEAD, EYES, EARS, NOSE AND THROAT: Normocephalic, atraumatic. NECK: Supple. HEART: Showed normal first and second heart sounds with no gallop, rub or murmur. CHEST: Shows central trachea, equal bilateral expansion, air entry, vesicular sounds. No crepitation or rhonchi. ABDOMEN: Slightly distended, soft, nontender. There is no guarding or rigidity. No organomegaly. All hernial orifices intact. Bowel sounds normal. NEUROLOGIC: She is awake, alert, responding appropriately. All cranial nerves intact. She moves extremities without difficulty. She ambulates without assistance or assistive devices. LABORATORY DATA: Her lab work this morning showed that her hemoglobin was 7.7, hematocrit 27. Her chemistry showed a serum sodium 143, potassium 3.4, chloride 106, bicarbonate 27, anion gap of 10, BUN 2, creatinine 0.5, estimated GFR was 118 mL per minute, her glucose was 109. Calcium was 8.4. DISCHARGE MEDICATIONS: She was discharged home to continue her aspirin 325 mg once a day, carvedilol 12.5 mg twice a day, clonidine patch 0.2 mg transdermal weekly, cyclobenzaprine 5 mg twice a day, duloxetine for Cymbalta 30 mg daily, gabapentin 100 mg 3 times a day, hydralazine 50 mg 3 times a day, hydrochlorothiazide 50 mg once a day, hydrocodone/APAP 5/325 one tablet every 6 hours. She is on Tresiba 45 units twice a day. She is on Zenpep 10,000 units with each meal, magnesium hydroxide for milk of magnesia 30 mL p.o. daily p.r.n. for constipation, omeprazole 40 mg daily, phenytoin sodium 300 mg at bedtime and 200 mg with breakfast. FINAL DISCHARGE DIAGNOSES: 1. Infectious colitis, treated with IV Levaquin and Flagyl. 2. Severe iron deficiency anemia, for which she received Venofer. Other medical problems include type 2 diabetes mellitus. 3. Reasonably controlled seizure disorder, for which she is on phenytoin. 4. Hyperlipidemia, history of pancreatitis, degenerative joint disease. SHERRELL NIEVES MD DR: NICHOLAS/mirna JOB#: [id number] / [id number]
== END 2018-10-20 11:47 | disposition home or self-care (01) | DRG 392 ==
LOC: 5 NORTH 12:57
PROVIDERS: ADMIT Internal Medicine; ATTEND Internal Medicine
PROC: 02HV33Z Insertion of Infusion Device into Superior Vena Cava, Percutaneous Approach (ICD-10-PCS; principal; 2018-10-17)
PROC: B5181ZA Fluoroscopy of Superior Vena Cava using Low Osmolar Contrast, Guidance (ICD-10-PCS; 2018-10-17)
PROC: B548ZZA Ultrasonography of Superior Vena Cava, Guidance (ICD-10-PCS; 2018-10-17)
DX: A09 Infectious gastroenteritis and colitis, unspecified (principal); D50.9 Iron deficiency anemia, unspecified; E11.9 Type 2 diabetes mellitus without complications; E78.00 Pure hypercholesterolemia, unspecified; E78.5 Hyperlipidemia, unspecified; E87.6 Hypokalemia; F32.9 Major depressive disorder, single episode, unspecified; G40.909 Epilepsy, unspecified, not intractable, without status epilepticus; G47.33 Obstructive sleep apnea (adult) (pediatric); I10 Essential (primary) hypertension; I25.10 Atherosclerotic heart disease of native coronary artery without angina pectoris; J45.909 Unspecified asthma, uncomplicated; M06.9 Rheumatoid arthritis, unspecified; K21.9 Gastro-esophageal reflux disease without esophagitis; K64.9 Unspecified hemorrhoids; M19.90 Unspecified osteoarthritis, unspecified site; Z79.82 Long term (current) use of aspirin; I25.2 Old myocardial infarction; Z86.14 Personal history of Methicillin resistant Staphylococcus aureus infection; Z86.73 Personal history of transient ischemic attack (TIA), and cerebral infarction without residual deficits; Z90.49 Acquired absence of other specified parts of digestive tract; Z87.442 Personal history of urinary calculi; Z90.710 Acquired absence of both cervix and uterus; Z86.711 Personal history of pulmonary embolism; Z88.0 Allergy status to penicillin; Z88.8 Allergy status to other drugs, medicaments and biological substances; Z91.040 Latex allergy status; Z79.899 Other long term (current) drug therapy; Z83.3 Family history of diabetes mellitus; Z86.718 Personal history of other venous thrombosis and embolism; Z95.0 Presence of cardiac pacemaker
CPT/HCPCS: 36415; 36569; 76937; 77001; 80048; 82962; 85014; 85018; 85025; 85651; 86140; 87045; 87493; 87641; C1751; C1892; J1756; J1815; J3480; J7050; J7030

== ENCOUNTER → 2018-11-14 | Outpatient (CLI) | payer OTHER ==
[2018-10-20 10:30] VITALS: BP 131/48
[~2018-11-14] MED LIST changes: +LIDOCAINE WITH 8.4% SOD BICARB 3 ML DISP.SYRIN. INJ ONE; +LIDOCAINE WITH 8.4% SOD BICARB 3 ML DISP.SYRIN. ONE
--- NOTE | 2018-11-14 11:50 | RAD ---
Exam: Fluoroscopic and ultrasound guided right percutaneous inserted central venous catheter placement 11/14/2018 11:47 AM .Indication: venous access for sedation Technique: Informed oral and written consent were obtained. The right upper extremity was prepped and draped using sterile barrier technique. All elements of maximal sterile barrier technique including the use of a cap, mask, sterile gown, sterile gloves, large sterile sheet, appropriate hand hygiene, and 2% chlorhexidine for cutaneous antisepsis (or acceptable alternative antiseptic per current guidelines) were followed for this procedure.. Real-time ultrasound demonstrated a patent right basilic vein. The right upper extremity was prepped and draped in usual sterile fashion. 1% lidocaine used for local anesthesia. Using real-time ultrasound guidance the access needle percutaneously punctured the selected vein. Reference ultrasound images were saved to the medical record. A guidewire was advanced through the needle to the cavoatrial junction, and a peel-away sheath placed. The catheter was cut to length and inserted through the peel-away sheath such that its tip is at the cavoatrial junction. The wire and sheath were removed, and the catheter secured in place, and a sterile dressing was applied. Catheter was found to flush and aspirate normally. No immediate complications are identified. FLUORO TIME: 0.1 minutes DOSE AREA PRODUCT: 1 Gycm2 Impression: Ultrasound and fluoroscopically guided placement of a right upper extremity PICC line.
== END | disposition home or self-care (01) ==
LOC: INTRAD 09:37
PROVIDERS: ATTEND Internal Medicine Gastroenterology
DX: Z45.2 Encounter for adjustment and management of vascular access device (principal); Z88.0 Allergy status to penicillin; Z91.040 Latex allergy status; Z88.8 Allergy status to other drugs, medicaments and biological substances
CPT/HCPCS: 36573; C1751; C1892; 36569; 76937; 77001

== ENCOUNTER → 2018-11-14 | Day surgery (SDC) | payer OTHER ==
[~2018-11-14] MED LIST changes: +IV RINGERS,LACTATED 1000ML 1,000 ML IV SCH; +LIDOCAINE 1% PF 2 ML VIAL. ID PRN; +LIDOCAINE 2% PF 5 ML VIAL. ONE; -LIDOCAINE WITH 8.4% SOD BICARB 3 ML DISP.SYRIN. INJ ONE; -LIDOCAINE WITH 8.4% SOD BICARB 3 ML DISP.SYRIN. ONE; +MIDAZOLAM HCL/PF 2 MG/2 ML VIAL. IV PRN; +PROPOFOL 0 ML IV ONE; +PROPOFOL 40 ML IV ONE; +fentaNYL PF VIAL 100 MCG/2 ML VIAL IV PRN
[2018-11-14 13:06] VITALS: BP 156/72
== END | disposition home or self-care (01) ==
LOC: ENDOS 09:30
PROVIDERS: ATTEND Internal Medicine Gastroenterology
DX: K64.0 First degree hemorrhoids (principal); K92.1 Melena; D50.9 Iron deficiency anemia, unspecified; I25.10 Atherosclerotic heart disease of native coronary artery without angina pectoris; I25.2 Old myocardial infarction; I10 Essential (primary) hypertension; E11.9 Type 2 diabetes mellitus without complications; G47.33 Obstructive sleep apnea (adult) (pediatric); Z86.73 Personal history of transient ischemic attack (TIA), and cerebral infarction without residual deficits; E78.5 Hyperlipidemia, unspecified; K21.9 Gastro-esophageal reflux disease without esophagitis; F32.9 Major depressive disorder, single episode, unspecified; Z90.49 Acquired absence of other specified parts of digestive tract; Z90.710 Acquired absence of both cervix and uterus; Z98.890 Other specified postprocedural states; Z83.3 Family history of diabetes mellitus; M06.9 Rheumatoid arthritis, unspecified; M19.90 Unspecified osteoarthritis, unspecified site; J45.909 Unspecified asthma, uncomplicated; Z95.0 Presence of cardiac pacemaker; Z88.0 Allergy status to penicillin; Z88.8 Allergy status to other drugs, medicaments and biological substances; Z91.040 Latex allergy status; Z98.0 Intestinal bypass and anastomosis status; Z79.84 Long term (current) use of oral hypoglycemic drugs; Z79.899 Other long term (current) drug therapy
CPT/HCPCS: 43235; 45378; 82962; J2001; J2704

== ENCOUNTER → 2019-08-01 | Day surgery (SDC) | payer OTHER, MEDICAID ==
[~2019-08-01] MED LIST changes: +ATOR20TA58 PO; +CELE200C PO; +DULO30CA44 PO; +HYDR12.575 PO; +HYDROmorphone 2 MG/ML VIAL IV PRN; +INSU300I SQ; -LIDOCAINE 1% PF 2 ML VIAL. ID PRN; -LIDOCAINE 2% PF 5 ML VIAL. ONE; +MECL-75 PO; -MECL12.52 PO; +MECL12.573 PO; -MECL25TA3 PO; -MELA3TAB2 PO; +MELA3TAB56 PO; -MIDAZOLAM HCL/PF 2 MG/2 ML VIAL. IV PRN; +MORPHINE SULFATE 2 MG/ML VIAL. IV PRN; -NIFE60TA16 PO; +NIFE60TA90 PO; +OMEP40CA45 PO; -OMEP40CA5 PO; +ONDANSETRON PF 4 MG/2 ML VIAL. IV PRN; +PROCHLORPERAZINE 10 MG/2 ML VIAL. IV PRN; -PROPOFOL 0 ML IV ONE; +PROPOFOL 20 ML IV ONE; -PROPOFOL 40 ML IV ONE
--- NOTE | 2019-08-01 08:37 | HP ---
ADMIT DATE: 08/01/2019 REASON FOR CONSULTATION: Dysphagia. HISTORY OF PRESENT ILLNESS: A 83-year-old male seen for dysphagia to both solids and liquids. Previous dilatation has helped and he is here today for interval dilatation. PAST MEDICAL HISTORY: Organic heart disease, CVA, CAD status post MO, hypertension, hyperlipidemia, asthma, GERD. PAST SURGICAL HISTORY: Status post Billroth II, cholecystectomy, , hysterectomy, pacemaker, right knee surgery. ALLERGIES: PENICILLIN, LATEX, AND PHENYTOIN. MEDICATIONS: Include aspirin, atorvastatin, carvedilol, Celexa, clonidine, Cymbalta, gabapentin, hydralazine, hydrochlorothiazide, insulin, magnesium, omeprazole, oxycodone, sertraline, and Dilantin. SOCIAL HISTORY: He is nonsmoker, nondrinker. FAMILY HISTORY: Noncontributory. REVIEW OF SYSTEMS: Per records. PHYSICAL EXAMINATION: GENERAL: Reveals a well-nourished, well-developed male. VITAL SIGNS: Temperature is 97.5, pulse 66, respirations 18. LUNGS: Clear. CARDIOVASCULAR: Reveals an S1, S2 without S3, S4 or appreciable murmur. ABDOMEN: Reveals a soft abdomen, normal bowel sounds, without appreciable hepatosplenomegaly. EXTREMITIES: Reveals no cyanosis, clubbing or edema. IMPRESSION: Dysphagia with solid and liquid component, oropharyngeal component may be present. We will recommend the upper endoscopy with possible biopsy and dilatation. If this is unhelpful, an esophagogram and speech pathology evaluation will be pursued. ASHLEY RENEE MD DR: COBY/mirna JOB#: [id number] / [id number]
== END ==
LOC: ENDOS 06:46
PROVIDERS: ATTEND Internal Medicine Gastroenterology
DX: R13.10 Dysphagia, unspecified (principal); K22.2 Esophageal obstruction; Z98.0 Intestinal bypass and anastomosis status; Z79.899 Other long term (current) drug therapy
CPT/HCPCS: 43235; 43450; 82962; J2704

== ENCOUNTER → 2019-11-14 | Outpatient (CLI) | payer OTHER, MEDICAID ==
[~2019-11-14] MED LIST changes: -HYDROmorphone 2 MG/ML VIAL IV PRN; -IV RINGERS,LACTATED 1000ML 1,000 ML IV SCH; +LISI10TA2 PO; -MAGN2400 PO; +MAGN24003 PO; +MELA3TAB4 PO; -MELA3TAB56 PO; -MORPHINE SULFATE 2 MG/ML VIAL. IV PRN; +NITROGLYCERIN SUBLINGUAL 0.4 MG BOTTLE OF 25. SL ONE; +NITROGLYCERIN SUBLINGUAL 0.4 MG BOTTLE OF 25. SL PRN; -ONDANSETRON PF 4 MG/2 ML VIAL. IV PRN; -PROCHLORPERAZINE 10 MG/2 ML VIAL. IV PRN; -PROPOFOL 20 ML IV ONE; +REGADENOSON 0.4 MG/5 ML DISP.SYRIN. IV ONE; -fentaNYL PF VIAL 100 MCG/2 ML VIAL IV PRN
[2019-11-14 11:45] VITALS: BP 153/51
--- NOTE | 2019-11-14 11:54 | NUR ---
Patient outpatient for cardiac stress test. Patient complains of chest pain 01/22 with BP 192/68. Called Dr. valerio, give patient home BP medication and wait 1hr, if chest pain resolves and BP lower proceed with cardiac stress test. BP recheck 145/54 with no chest pain. Stress test completed, patient complains of chest pain. Called Dr. Obrien, ordered to given Nitro and finish taking post pictures and send patient home if chest pain resolves. Patient given Nitro with improvement of chest pain. Patient denies any chest pain at start of post pictures. Vitals stable, daughter at bed side.
--- NOTE | 2019-11-14 13:21 | RAD ---
MR#: [id number] Date of Study: 11/14/2019 Ordering Physician: ANTONIO MALONEY, Referring Physician: MARIE KAMARA Tech: GLADIS Jalloh APPROVED REPORT Test Type: Pharmacological Stress Nurse/Tech: Es Alcantara RN Test Indications: CAD, Chest Pain Cardiac History: Hypertension, Diabetes, Pacemaker, 2 MS Medications: See Electronic Medical Record Medical History: See Electronic Medical Record Resting ECG: SR with PVC's, occasional a-paced. Resting Heart Rate: 66 bpm Resting Blood Pressure: 145/54mmHg Pretest Chest Pain: No chest pain Nurse/Tech Notes Patient complained of chest pain 7/10 with BP 192/68 prior to test, took BP medication and BP recheck 145/54 with no chest pain. Then stress test started. S1S2, Lungs CTA Consent: The procedure was explained to the patient in lay terms. Informed consent was witnessed. Diony eout was entered into [employer]. History and Stress Test performed by GLADIS Jalloh Pharm. Details Pharmacologic stress testing was performed using 0.4mg per 5ml of regadenoson given intravenously ove r 7-10 seconds. Stress Symptoms Dyspnea, Flushing, Nausea, Dizziness, Fatigue, heart palpations, Chest pain 7/10. POST EXERCISE Reason for Termination: Infusion complete Max HR: 76 bpm Max Blood Pressure: 122/47mmHg Blood Pressure response to exercise: Normal blood pressure response during stress. Heart Rate response to exercise: WNL Chest Pain: Yes. 7/10 during stress, Nitro given after stress test with resolution of chest pain. Arrhythmia: No. increase in PVC's during stress test. ST Change: No. INTERPRETATION Stress EKG Conclusion: No evidence of stress induced EKG changes. Imaging Protocol IMAGE PROTOCOL: Rest Tc-99m/stress Tc-99m 1 day Rest: Stress: Viability: Radiopharm.Tc99m [id number] Sestamibi [id number] 33mCi Duration 15min. 10min. Img Date 11/14/2019 11/14/2019 Inj-Img Ectt24vrg. 60min. Rest Admin Site:IV - Left AntecubitalAdministrator:GLADIS Jalloh Stress Admin Site: IV - Left AntecubitalAdministrator: Jaqueline Tony, RT (R)(N) STRESS DATA End Diast. Vol.88.0mlAv. Heart Rate69.0bpm End Syst. Vol.22.0mlCO Index BSA0.0L/min Myocardial Ieng081.0gEject. Uontaekf58.0% Stress Rates Pk. Fill Rate3.07EDV/secLVtime Pk. Fill 177.53msec Pk. Empty Rate3.69ESV/secLVtime Pk. Wmmtn250.01msec 07/18 Pk. Fill1.08EDV/sec Stress Scores Regional WT1.00Summed WT6.00 Regional WM0.00Summed WM0.00 The rest and stress images show normal perfusion, normal contraction and thickening. LV Perf. Quant 17 Seg. SSS0.00 17 Seg. SRS8.00 17 Seg. SDS0.00 Stress Defect Extent (% LAD)0.00Rest Defect Extent (% LAD)1.90Rev. Defect Extent (% LAD)0.00 Stress Defect Extent (% LCX) 0.00Rest Defect Extent (% LCX)31.30Rev. Defect Extent (% LCX)0.00 Stress Defect Extent (% RCA)0.00Rest Defect Extent (% RCA)1.10Rev. Defect Extent (% RCA)0.00 Stress Defect Extent (% BETSY)0.00Rest Defect Extent (% BETSY)12.00Rev. Defect Extent (% BETSY)0.00 Other Information Quality:Fair Risk Assessment: Low Risk Conclusion 1. No evidence of EKG changes with stress testing. 2. Normal perfusion at stress/rest. 3. Low risk study. 4. EF > 60%. Signed by : Misbah Garcia, Electronically Approved : 11/14/2019 13:21:16
== END | disposition home or self-care (01) ==
LOC: NM 08:26
PROVIDERS: ATTEND Internal Medicine Cardiovascular Disease
DX: R07.9 Chest pain, unspecified (principal); I10 Essential (primary) hypertension; E11.9 Type 2 diabetes mellitus without complications; I25.2 Old myocardial infarction; Z95.0 Presence of cardiac pacemaker
CPT/HCPCS: 78452; 93017; A9500; J2785

== ENCOUNTER → 2019-11-25 | Outpatient (CLI) | payer OTHER, MEDICAID ==
[2019-11-14 11:45] VITALS: BP 153/51
[~2019-11-25] MED LIST changes: +ASPI-630 PO; -NITROGLYCERIN SUBLINGUAL 0.4 MG BOTTLE OF 25. SL ONE; -NITROGLYCERIN SUBLINGUAL 0.4 MG BOTTLE OF 25. SL PRN; -REGADENOSON 0.4 MG/5 ML DISP.SYRIN. IV ONE
== END | disposition home or self-care (01) ==
LOC: LAB 13:59
PROVIDERS: ATTEND Internal Medicine Cardiovascular Disease
DX: Z01.812 Encounter for preprocedural laboratory examination (principal); Z11.59 Encounter for screening for other viral diseases; R07.9 Chest pain, unspecified
CPT/HCPCS: 36415; 87635

== ENCOUNTER 2019-11-28 07:07 | Outpatient (CLI) | payer OTHER, MEDICAID ==
[2019-11-28] VITALS (13 sets, daily range): BP systolic 96–173; BP diastolic 47–77
[~2019-11-28] VITALS: Ht 160 cm; Wt 73.5 kg
[~2019-11-28 07:07] MED LIST changes: -ASPI-630 PO
[2019-11-28 07:33] LABS: HEMOGLOBIN 11.6 g/dL (12.0-15.5); RED BLOOD COUNT 3.93 x10^6/uL (3.50-5.40); RED CELL DISTRIBUTION WIDTH 13.2 % (11.5-14.5); WHITE BLOOD COUNT 5.4 x10^3/uL (4.0-11.0)
[2019-11-28 07:43] LABS: CALCIUM 8.7 mg/dL (8.5-10.1); CREATININE 0.7 mg/dL (0.6-1.0); GFR 80.1; POTASSIUM 4.5 mmol/L (3.5-5.1)
[2019-11-28 07:44] LABS: PROTHROMBIN TIME PATIENT 12.8 SEC (11.7-14.0)
[2019-11-28] MEDS ORDERED: IODIXANOL 320 MG/ML 100 ML VIAL. ONE ×2 (07:44→09:42)
[2019-11-28] MEDS ORDERED: LIDOCAINE 1% PF 2 ML VIAL. ONE (07:44)
[2019-11-28] MEDS ORDERED: ASPI-630 PO (07:54)
[2019-11-28] MEDS ORDERED: INSU300I SQ (07:54)
[2019-11-28] MEDS ORDERED: CELE200C PO (08:09)
[2019-11-28] MEDS ORDERED: HEPARIN for IV BOLUS 10,000 UNIT/10 ML VIAL. ONE (08:13)
[2019-11-28] MEDS ORDERED: fentaNYL PF VIAL 100 MCG/2 ML VIAL ONE (08:13)
[2019-11-28] MEDS ORDERED: NITROGLYCERIN 200 MCG/2 ML SYRINGE FOR CATH/VASC LAB. ONE (08:13)
[2019-11-28] MEDS ORDERED: MIDAZOLAM HCL/PF 5 MG/5 ML VIAL. ONE (08:13)
[2019-11-28] MEDS ORDERED: VERAPAMIL 5 MG/2 ML VIAL. ONE (08:13)
[2019-11-28] MEDS ORDERED: VERAPAMIL 5 MG/2 ML VIAL. IART ONE (09:15)
[2019-11-28] MEDS ORDERED: NITROGLYCERIN 200 MCG/2 ML SYRINGE FOR CATH/VASC LAB. IART ONE (09:15)
[2019-11-28] MEDS ORDERED: LIDOCAINE 1% PF 2 ML VIAL. INJ ONE (09:15)
[2019-11-28] MEDS ORDERED: IODIXANOL 320 MG/ML 100 ML VIAL. IART ONE (09:15)
[2019-11-28] MEDS ORDERED: fentaNYL PF VIAL 100 MCG/2 ML VIAL IV ONE (09:15)
[2019-11-28] MEDS ORDERED: MIDAZOLAM HCL/PF 5 MG/5 ML VIAL. IV ONE (09:15)
[2019-11-28] MEDS ORDERED: HEPARIN for IV BOLUS 10,000 UNIT/10 ML VIAL. IART ONE (09:15)
[2019-11-28] MEDS ORDERED: HEPARIN for IV BOLUS 10,000 UNIT/10 ML VIAL. IV ONE (09:30)
[2019-11-28] MEDS ORDERED: ADENOSINE 90 MG/30 ML VIAL. IV ONE (09:33)
[2019-11-28] MEDS ORDERED: ADENOSINE 90 MG in IV NORMAL SALINE 50ML 90 ML IV ONE (09:45)
--- NOTE | 2019-11-28 10:21 | CARD ---
MR#: [id number] Date of Study: 11/28/2019 Ordering Physician: ANTONIO MALONEY, Referring Physician: ANTONIO MALONEY Tech: Alicia Garnica APPROVED REPORT Technologist: Alicia Garnica Nurse: Amaris Luna R.N. Procedure(s) performed: 1. Left heart catheterization, selective coronary angiography and left ventr iculography via right transradial approach 2. Instant wave free ratio (IFR) and fractional flow reserve (FFR) measurement left anterior descend ing artery stenosis fl time: 10.6 min dose: 83 gycm2 contrast: 156 ml moderate sedation: 60 minutes INDICATION The indication(s) include : unstable angina . CSHA Clinical Frailty Scale [facility] Clinical Frailty Scale: Moderately Frail Heart Failure Heart Failure: Yes If Yes, Newly Diagnosed: No If Yes, HF Type: Diastolic If Yes, NYHA Class: Class II PROCEDURE NARRATIVE After explaining the risks, benefits and alternative options, informed consent was obtained from jimmy ent. Patient was brought to the cardiac [employer] and right wrist was prepped and draped in the usual fashion after confirming a positive modified Karl's test. Arterial access was obtained in the rig t radial artery and a [place] sheath was inserted. [place] Pepe and [place] JL 3.5 catheters we re used to perform selective angiography of the right and left coronary arteries. [place] pigtail c atheter was used to perform left ventriculography. Since patient had angiographically borderline les ion involving the left anti-descending artery, a decision was made to perform physiologic assessment using instant wave free ratio (IFR). The left main coronary artery was engaged with a [place] XB 3. 5 guide catheter and the stenosis in the midsegment of the left anterior descending artery was crosse d with a [employer] pressure wire. IFR measurement was borderline at 0.90. Hence we decided to interrogate this further with fractional flow reserve measurement. Patient was given intravenous ad enosine infusion per protocol and FFR measurement was made. It was insignificant at 0.91. Hence thi s was not intervened upon. Patient tolerated the procedure well. Hemostasis was achieved using TR b and. There were no immediate complications. The following findings were noted. FINDINGS 1. Hemodynamics: Elevated left ventricular end-diastolic pressure of 25 mmHg consistent with mild ac ray on chronic diastolic heart failure. No pullback gradient across the aortic valve. 2. Left ventriculography: Hyperdynamic left ventricular systolic function with ejection fraction est imated at 75 to 80%. No significant mitral regurgitation seen. 3. Coronary angiography: a. The left main coronary artery arose from the left sinus of Valsalva, gave rise to the left anteri or descending and left circumflex arteries and did not show any significant stenosis. b. The left anterior descending artery showed 50% stenosis in the midsegment there was physiological ly insignificant based on FFR measurement of 0.91. c. The left circumflex artery did not show any significant stenosis. d. The right coronary artery was a large and dominant vessel arising from the right sinus of Valsalv a that did not show any significant stenosis. Conclusion 1. Nonobstructive coronary artery disease involving the left anterior descending artery, proved phys iologically insignificant based on FFR measurement of 0.91. 2. Hyperdynamic left ventricular systolic function with ejection fraction estimated at 75 to 80%. Recommendations Patient's chest pain appears to be noncardiac based on findings noted above. Continue cardiovascular risk factor modification. Signed by : Antonio Maloney, Electronically Approved : 11/28/2019 10:20:40
--- NOTE | 2019-11-28 13:20 | NUR ---
pt A&O x4 days. denies pain or nausea. states she has vertigo normally and was a little dizzy when standing up. ambulated to BR w/her walker w/o problem. VSS. tolerating po well. rt radial site oozed just a small bit when Tr band removed. pressure held for 5 minutes and no further bleeding noted. cleaned site and dressing applied. pt then got dressed and was here for another 15 minutes w/o any bleeding. arm board reapplied to rt wrist/hand. d/c instructions reviewed and questions answered. out to vehicle per w/c- dtr to drive her home.
== END 2019-11-28 13:20 | disposition home or self-care (01) ==
LOC: CCL 07:07
PROVIDERS: ATTEND Internal Medicine Cardiovascular Disease
DX: I25.110 Atherosclerotic heart disease of native coronary artery with unstable angina pectoris (principal); I10 Essential (primary) hypertension; Z88.0 Allergy status to penicillin; Z91.040 Latex allergy status; Z88.8 Allergy status to other drugs, medicaments and biological substances; Z79.82 Long term (current) use of aspirin; Z79.4 Long term (current) use of insulin; Z79.899 Other long term (current) drug therapy
CPT/HCPCS: 36415; 80048; 85027; 85610; 93458; 93571; C1769; C1892; J0153; J1644; J2250; J3010; J3490; Q9967; 99152; 99153

== ENCOUNTER → 2021-01-18 | Outpatient (CLI) | payer OTHER, MEDICAID ==
[2019-11-28 12:58] VITALS: BP 140/77
[~2021-01-18] MED LIST changes: +AMLO-186 PO; -AMLO5TAB10 PO; +ASPI-630 PO; -HYDR50TA6 PO; +HYDR50TA9 PO; +LISI10TA16 PO; -LISI10TA2 PO; -MECL12.573 PO; +MECL12.582 PO; -NALO25TA2 PO; +NALO25TA4 PO; -OMEP40CA45 PO; +OMEP40CA7 PO; +SERT-268 PO; -SERT100T8 PO
--- NOTE | 2021-01-18 18:36 | CARD ---
MR#: [id number] Date of Study: 01/18/2021 Ordering Physician: ANTONIO MALONEY, Referring Physician: ANTONIO MALONEY Tech: Pinky Cabral [facility] [[email or web address]] APPROVED REPORT EXAM: Two-dimensional and M-mode echocardiogram with Doppler and color Doppler. Other Information Quality : Technically LimitedHR: 52bpm Rhythm : NSR INDICATION COPD Dyspnea RISK FACTORS Hypertension Obesity 2D DIMENSIONS RVDd4.1 (2.9-3.5cm)Left Atrium(2D)4.8 (1.6-4.0cm) IVSd1.2 (0.7-1.1cm)Aortic Root(2D)2.9 (2.0-3.7cm) LVDd5.2 (3.9-5.9cm)LVOT Diameter2.2 (1.8-2.4cm) PWd1.1 (0.7-1.1cm)IVSs1.9 (0.8-1.2cm) LVDs3.4 (2.5-4.0cm)FS (%) 34.2 % PWs1.7 (0.8-1.2cm)SV79.8 ml LVEF(%)62.8 (>50%) Aortic Valve AoV Peak Ferdinand.130.4cm/sAoV VTI26.5cm AO Peak GR.6.8mmHgLVOT Peak Ferdinand.101.7cm/s LVOT VTI 21.78cmAO Mean GR.3mmHg TARYN (VMAX)2.63tn0KPD (VTI)3.18cm2 Mitral Valve MV E Pwtwzgej04.8cm/sMV DECEL [id number] MV A Lhpvhzcr928.9cm/sMV [id number] E/A Ratio0.8MVA (PHT)2.51cm2 TDI E/Lateral E'9.5E/Medial E'14.0 Tricuspid Valve TR P. Kpxcogvy444bb/sTR Peak Gr.30mmHg LEFT VENTRICLE The left ventricle is normal size. There is borderline to mild concentric left ventricular hypertroph y. The left ventricular systolic function is normal and the ejection fraction is within normal range. EF 55% There is normal LV segmental wall motion. Transmitral Doppler flow pattern is Grade I-abnorma l relaxation pattern. RIGHT VENTRICLE The right ventricle is normal size. There is normal right ventricular wall thickness. The right ventr icular systolic function is normal. ATRIA The left atrium is borderline dilated. The right atrium size is normal. The interatrial septum is int act with no evidence for an atrial septal defect or patent foramen ovale as noted on 2-D or Doppler i maging. AORTIC VALVE The aortic valve is normal in structure and function. Doppler and Color Flow revealed mild aortic reg urgitation. There is no significant aortic valvular stenosis. MITRAL VALVE The mitral valve is normal in structure and function. There is no evidence of mitral valve prolapse. There is no mitral valve stenosis. Doppler and Color-flow revealed mild mitral regurgitation. TRICUSPID VALVE The tricuspid valve is normal in structure and function. Doppler and Color Flow revealed mild tricusp id regurgitation. Estimated PAP 35 mmHg. There is no tricuspid valve stenosis. PULMONIC VALVE Doppler and Color Flow revealed mild pulmonic valvular regurgitation. There is no pulmonic valvular s tenosis. GREAT VESSELS The aortic root is normal in size. The ascending aorta is normal in size. The IVC is normal in size a nd collapses >50% with inspiration. PERICARDIAL EFFUSION There is no evidence of significant pericardial effusion. Critical Notification Critical Value: No <Conclusion> The left ventricular systolic function is normal and the ejection fraction is within normal range. EF 55% There is normal LV segmental wall motion. Signed by : Misbah Garcia, Electronically Approved : 01/18/2021 18:35:47
== END ==
LOC: ECHO 11:31
PROVIDERS: ATTEND Internal Medicine Cardiovascular Disease
DX: I08.8 Other rheumatic multiple valve diseases (principal); I25.10 Atherosclerotic heart disease of native coronary artery without angina pectoris
CPT/HCPCS: 93306